=== PATIENT | female | born 1990 | race Caucasian/White ===

== ENCOUNTER 2023-10-01 14:26 | Outpatient (CLI) | payer OTHER, SELFPAY ==
--- NOTE | ~2023-10-01 | US_ITS ---
EXAMINATION: US OB limited DATE: 10/01/2023 15:59 INDICATION: Amniotic fluid index and presentation evaluation during third trimester TECHNIQUE: Real-time ultrasound of the pelvis was performed. The interpreting radiologist was not pre sent for the study. COMPARISON: None. FINDINGS: There is a single living fetus in breech presentation. The placenta is fundal. cardia c activity and movement are noted. heart rate is 143 beats per minute (bpm). The amniotic fluid index is 9.7 cm which is normal (normal range: 7.5 cm to 24.4 cm). IMPRESSION: 1. Single living fetus in breech presentation. 2. Normal amniotic fluid index. Reviewed, dictated and finalized at location [facility]
[2023-10-01 15:20] VITALS: BP 134/77; PULSE 103
[2023-10-01 15:20] LABS: Basophils Percent Auto 0.2 % (0.2-1.2); Eosinophils Absolute Auto 0.1 K/mm3 (0-0.3); Eosinophils Percent Auto 0.7 % (0-4.4); Hematocrit 32.8 % (37.0-47.0); Hemoglobin 10.7 g/dL (12.0-15.0); Immature Granulocyte Absolute 0.06 K/mm3 (0.00-0.031); Immature Granulocyte Percent A 0.6 % (0-0.5); Lymphocytes Percent Auto 21.8 % (18.3-44.2); Mean Corpuscular HGB Conc 32.6 g/dl (32-36); Mean Corpuscular Hemoglobin 29.2 pg (26-34); Mean Corpuscular Volume 89.6 fl (80-100); Mean Platelet Volume 10.7 fl (7.4-10.4); Monocytes Absolute Auto 0.6 K/mm3 (0.1-0.6); Monocytes Percent Auto 6.4 % (2.6-8.5); Neutrophils Absolute Auto 6.8 K/mm3 (1.3-6.7); Neutrophils Percent Auto 70.3 % (45.5-73.1); Platelet Count Result 279 k/mm3 (150-375); Red Blood Count 3.66 M/mm3 (4.2-5.4); Red Cell Distribution Width 13.2 % (11.5-14.5); White Blood Count 9.7 K/mm3 (4.5-10.0)
[2023-10-01 15:21] VITALS: BP 134/77; PULSE 92
[2023-10-01 15:30] VITALS: BP 141/75; PULSE 92
[2023-10-01 15:31] LABS: Alanine Aminotransferase 12 U/L (6-35); Albumin Level 3.3 g/dL (3.5-5.1); Alkaline Phosphatase 131 U/L (38-126); Anion Gap 6 mmol/L (8-16); Aspartate Amino Transferase 20 U/L (14-36); Bilirubin,Total 0.2 mg/dL (0.2-1.3); Blood Urea Nitrogen 7 mg/dL (7-17); Carbon Dioxide 21 mmol/L (22-30); Chloride 107 mmol/L (98-107); Estimated Glomerular Filt Rate > 60; Glucose 104 mg/dL (65-110); Sodium 134 mmol/L (137-145); Uric Acid 5.3 mg/dL (2.5-7.5)
[2023-10-01 15:33] LABS: Creatinine Urine 36.8 mg/dL; Total Protein Urine Random 13 mg/dL; Ur Ttl Prot Creatinine Ratio 0.35 mg/mg (0-0.20)
[2023-10-01 15:40] VITALS: BP 141/75; PULSE 86
--- NOTE | 2023-10-01 16:28 | PM.OBTRLD ---
OB - Triage/Final Diagnosis Visit Information Date of evaluation: 10/01/23 Reason for evaluation: other ( induced hypertension) Comments/Additional reasons for admission: I have assessed the risk for this patient, Flora Ricci, and determined that she would benefit from observation care. Evaluation Laboratory results: Laboratory Tests 10/01/23 15:12 WBC 9.7 RBC 3.66 L Hgb 10.7 L Hct 32.8 L MCV 89.6 MCH 29.2 MCHC 32.6 RDW 13.2 Plt Count 279 MPV 10.7 H Immature Gran % (Auto) 0.6 H Neut % (Auto) 70.3 Lymph % (Auto) 21.8 [place] % (Auto) 6.4 Eos % (Auto) 0.7 Baso % (Auto) 0.2 Lymph # (Auto) 2.10 [place] # (Auto) 0.6 Eos # (Auto) 0.1 Baso # (Auto) 0.0 Abs Immat Gran (auto) 0.06 H Absolute Neuts (auto) 6.8 H Absolute Nucleated RBC 0.0 Nucleated RBC % 0.0 Sodium 134 L Potassium 4.0 Chloride 107 Carbon Dioxide 21 L Anion Gap 6 L BUN 7 Creatinine 0.70 Estim Creat Clear Calc Not Reportable Estimated GFR > 60 Glucose 104 Uric Acid 5.3 Calcium 9.0 Total Bilirubin 0.2 AST 20 ALT 12 Alkaline Phosphatase 131 H Total Protein 6.0 L Albumin 3.3 L U Random Total Protein 13 Urine Creatinine 36.8 Protein/Creat Ratio 2 0.35 H Vital signs: Vital Signs - 24 hr 10/01/23 15:21 10/01/23 15:30 Pulse Rate 92 92 Blood Pressure 134/77 141/75 H
--- NOTE | 2023-10-01 16:30 | PC.NURSE ---
Dr. Linda Dwyer at department reviewed strip and lab result. report given regarding ultrasound . discussed with pt plan of care and c section . pt agreed with plan of care. c section was scheduled tomorrow at 1200
[2023-10-01] MEDS: BETAMETHASONE SOD PHOS/ACETATE 30 MG/5 ML VIAL 12 MG IM (16:38)
== END 2023-10-01 16:40 | disposition home or self-care (01) ==
LOC: ANHOBOP 14:42 → ANHLDR 14:44
PROVIDERS: Visit Provider Obstetrics & Gynecology
DX: O13.9 Gestational [pregnancy-induced] hypertension without significant proteinuria, unspecified trimester (principal); Z3A.00 Weeks of gestation of pregnancy not specified
CPT/HCPCS: 36415; 59025; 76815; 80053; 82570; 84156; 84550; 85025; 96372; 99199; J0702

== ENCOUNTER 2023-10-02 09:49 | Inpatient (IN) | payer OTHER, SELFPAY ==
--- NOTE | 2023-10-01 16:31 | P.HP_ITS ---
H&P: HPI History of Present Illness Date/Time: 10/01/23 16:31 Chief Complaint: -induced hypertension at term Narrative: 33-year-old 1 para 0 whose EDC is 10/21/2023, confirmed by 9 week ultrasound who presents at 37 and 2 7th weeks gestation for section. She has elevated blood pressures and rising creatinine with the protein creatinine ratio that is elevated. Baby is breech and she declined an attempt at external version. Risks and benefits of been reviewed. The had been complicated by an abnormal 1hour diabetic test but she passed her 3hour test. [facility] Family History Family History Grandparent Congestive heart failure (CHF) Diabetes mellitus Mother Cervical cancer Diabetes mellitus Social History Social History Substance use: never Spiritual care concerns: No Meds Home Medications and Allergies Home Medications Medication Instructions Recorded Confirmed Type prenat.vits,kalpana,rex-dzun-ophpj 1 tablet 09/20/23 History Allergies Allergy/AdvReac Type Severity Reaction Status Date / Time adhesive tape Allergy Redness of Verified 09/20/23 12:35 Skin Latex, Natural Rubber Allergy Rash Verified 09/20/23 12:35 Exam Const: General: cooperative, healthy appearing and comfortable Orientation/consciousness: oriented to person, oriented to place and oriented to time Resp: Effort & Inspection: normal respiratory effort Cardio: Rate: regular rate Rhythm: regular rhythm Heart sounds: S1 normal heart sound present and S2 normal heart sound present GI: Inspection: normal to inspection ( Gravid soft uterus) Assessment and Plan Assessment and plan (1) Term : Code(s): Z34.90 - Encounter for supervision of normal , unspecified, unspecified trimester Status: Acute (2) induced hypertension: Code(s): O13.9 - Gestational [-induced] hypertension without significant proteinuria, unspecified trimester Status: Acute (3) malpresentation: Code(s): O32.9XX0 - Maternal care for malpresentation of fetus, unspecified, not applicable or unspecified Status: Acute Plan primary low-transverse section. Patient has received 1 dose of steroid secondary to 37 weeks
[2023-10-02] VITALS (60 sets, daily range): BP systolic 112–159; BP diastolic 53–117; PULSE 68–136; RESP 16–18; TEMP 36.4–36.6; O2SAT 95–100; BMI 34.8
--- NOTE | 2023-10-02 07:42 | WPDHPUPDATE1 ---
History and Physical Update Update Date/Time: 10/02/23 07:42 History and Physical has been reviewed, including an updated exam of the patient. There are NO changes in the patient's condition. Risks, benefits, and alternatives have been discussed and questions answered. Patient agrees to proceed with procedure.
--- NOTE | 2023-10-02 10:16 | LDADM ---
This patient, Flora Ricci, was admitted to Labor/Delivery/Recovery 120 on 10/02/23 at 09:49. Plans for primary section. Patient/family oriented to hospital policies and general routines including ID bracelet, bed and alarms, visiting hours, pain management, procedures, bathroom and other care routines, personal items, smoking policy, room service/diet and guest tray routines, infant security routines, and visiting hours. Patient/Family are encouraged to report perceived risks to care and to ask questions if they do not understand what they are told or what they should do. See OBIX for further documentation.
[2023-10-02] MEDS: ACETAMINOPHEN 500 MG TABLET 1000 MG PO (10:34)
[2023-10-02] MEDS: LACTATED RINGERS 1,000 ML 125 ML IV CONT (10:36)
[2023-10-02] MEDS: ONDANSETRON INJ 4 MG/2 ML VIAL IV PUSH (11:33)
[2023-10-02] MEDS: FAMOTIDINE 20 MG/2 ML VIAL IV PUSH (11:33)
[2023-10-02] MEDS: ceFAZolin 2 GM/D5W 50 ML 2 GM/50 ML BAG IVPB (11:56)
--- NOTE | 2023-10-02 12:39 | WPDANESEPPF ---
Anes - Initial Pre Proc Eval Procedure: Operation Date: 10/02/23 12:00 Proposed Procedures p Section - Justin Dwyer MD Date/Time: 10/02/23 12:39 Surgeon: Justin Dwyer MD Pre Op Diagnosis: c/s Patient Data Age: 33 Gender: F Height: 1.68 m Weight: 98 kg Last Vital Signs Pulse 98 10/02/23 10:11 BP 153/84 H 10/02/23 10:11 Pulse Ox 97 10/02/23 10:10 O2 Del Method Room Air 10/02/23 10:13 Allergies Allergy/AdvReac Type Severity Reaction Status Date / Time adhesive tape Allergy Redness of Verified 09/20/23 12:35 Skin Latex, Natural Rubber Allergy Rash Verified 09/20/23 12:35 Home Medications Medication Instructions Recorded Confirmed Type One A Day Women's DHA 1 tab-cap PO DAILY 10/02/23 10/02/23 History famotidine 20 mg tablet (Pepcid) 20 mg PO DAILY 10/02/23 10/02/23 History hydrocodone 5 mg-acetaminophen 325 1 tablet PO Q4H PRN pain #30 tabs 10/02/23 Rx mg tablet Laboratory Tests 10/02/23 10:27 RPR Pending Blood Type O Positive Antibody Screen Negative Patient hx anesthesia problems: none Family hx anesthesia problems: none Results Review: All pre-operative results and documents have been reviewed as part of the pre-operative evaluation. [facility] Surgical History Surgical History (Updated 10/02/23 @ 12:39 by Justin Woods MD) H/O wisdom tooth extraction Family History Family History Grandparent Congestive heart failure (CHF) Diabetes mellitus Mother Cervical cancer Diabetes mellitus Social History Social History Smoking status: Former smoker Second hand tobacco smoke exposure: No Substance use: never Do You Feel Safe in your Home?: Yes Lack of Transportation: No Lack of Food: Never True Current Housing: I Have Housing Concerned About Future Housing: No Difficulty Paying Gas/Electric Bills: No Difficulty Paying for Meds: No Currently Unemployed: No Education: Associate Degree Difficulty w/ Childcare or Family Care: No Spiritual care concerns: No Anes - Eval Final PreProcedure Day of Procedure 10/02/23 12:39 Patient weight: obese Heart: regular rate and rhythm Lungs: clear to auscultation Airway: Mallampati scale class 1 Neurological: alert and oriented Last oral intake: >/= 8 hours ASA classification: II Emergent: no Anesthetic plan: proceed Anesthesia type and monitoring: regional spinal and standard monitoring Results Review: All pre-operative results and documents have been reviewed as part of the pre-operative evaluation. Informed Consent: The patient's anesthetic plan and its attendant risks and benefits were discussed with the patient/family/POA. Questions were solicited and answers provided to the satisfaction of the patient/family/POA.
--- NOTE | 2023-10-02 12:47 | W.PM.OBCSD ---
OB - Delivery Note Procedure Delivery date: 10/02/23 Pre-op diagnosis: Breech Presentation and Other (-induced hypertension) Post-op Diagnosis: Same Induction method: None Delivery monitor: External FHT Procedure Performed: Primary Surgeon: Justin Dwyer MD Anesthesia type: Spinal Description of Procedure/Findings: patient was admitted for primary section secondary to breech presentation 37 week and -induced hypertension. After local ultrasound showed continued breech presentation patient was wheeled back placed in the supine position prepped and draped in the normal sterile fashion. The abdomen was entered through Pfannenstiel fashion incision progressive layers of fascia. Fascia incised midline care number fashion. Underlying muscles sharply dissected. Parietal peritoneum 0 by Tierra clamps and by sharp dissection and carried inferiorly and to the dome of the bladder. Bladder blade for placed. Bladder flap formed. Bladder blade returned. Low-transverse incision made the breech delivered to the maternal right. Arms were swept medially and the head delivered in flexed position. passed off the table with an excellent cry. Placenta delivered intact manually. Uterus delivered on the abdomen wrapped in a moist towel. After assuring no membranes or debris remained in the uterus, the uterus was closed with continuous running locking 0 Vicryl from lateral edge to lateral edge. Followed by 2nd running 0 Vicryl from lateral edge to lateral edge. Hemostasis was assured. Ovaries and tubes appeared within normal limits. Uterus returned the abdomen. Hysterotomy incision inspected 1 last time noted be hemostatic. Debris from the gutters and cul-de-sac were removed. Laps removed and accounted for. The hysterotomy incision SPECT 1 last time noted be hemostatic. The fascia closed with continuous running 0 Vicryl from lateral edge to lateral edge. Irrigation subcutaneous layer the skin closed with 4 Monocryl glue. QBL was 325. All sponge, needle, instrument counts were correct. There were no immediate complications noted Estimated Blood Loss: 325 Drains: No Packing: No Pathology: None sent Complications: No immediate complications Condition: Stable Disposition: Floor Baby Date of : 10/02/23 Time of : 12:30 Weeks of gestation at delivery: 37 Infant gender: Female Weight (pounds): 6 Weight (ounces): 12 presentation: vance breech position: Other ( right breech anterior) Placenta delivery description: Manual Removal Cord Vessel Description: 3 Vessels and Nuchal Cord score one minute: 9 score five minutes: 9
--- NOTE | 2023-10-02 12:52 | PM.DS ---
DS: Admitting Diagnosis Discharge Date 10/05/2023 Admitting Diagnosis 37 week / breech presentation/-induced hypertension DS: Discharge Diagnosis Discharge Diagnosis (1) Term : Code(s): Z34.90 - Encounter for supervision of normal , unspecified, unspecified trimester Status: Acute (2) induced hypertension: Code(s): O13.9 - Gestational [-induced] hypertension without significant proteinuria, unspecified trimester Status: Acute (3) malpresentation: Code(s): O32.9XX0 - Maternal care for malpresentation of fetus, unspecified, not applicable or unspecified Status: Acute DS: Summary Hospital Course Reason for hospitalization: patient was admitted on 10/02/2023 for primary section secondary to breech -induced hypertension at term Hospital Course: patient underwent an unremarkable 10/02/2023. Her hospital course unremarkable. She remained afebrile. She was up, voiding without difficulty, eating regular diet, ambulating, generally thought complaints. Time Spent with Patient Time attestation: Total time spent providing and/or coordinating discharge services: Exam Const: General: cooperative, healthy appearing and comfortable Nutritional Appearance: average body habitus Orientation/consciousness: oriented to person, oriented to place and oriented to time HENMT: Head: normal to inspection Resp: Effort & Inspection: normal respiratory effort Cardio: Rate: regular rate Rhythm: regular rhythm Heart sounds: S1 normal heart sound present and S2 normal heart sound present GI: Inspection: normal to inspection ( Fundus firm below the umbilicus) and incision ( wound is clean dry and intact) DS: Data Data Completed and Pending Labs on day of discharge: Labs from last 24 hours 10/02/23 10:27 RPR Pending Blood Type O Positive Antibody Screen Negative Discharge Plan Discharge Attending physician on discharge: Justin Banuelos Discharging Clinician: Justin Banuelos Patient Disposition: Home, Self-Care Activity: may shower, no straining, may drive after 2 weeks and pelvic rest Diet: heart healthy Wound Care Instructions: follow printed instructions Patient Instructions: Antibiotic Form Stand Alone Forms: General Discharge Information Follow-up/Referrals: Justin Banuelos MD [Physician] - Discharge Medications: New hydrocodone-acetaminophen 5-325 mg tablet 1 tablet PO Q4H PRN (Reason: pain) Qty: 30 0RF No Action One A Day Women's DHA 1 tab-cap PO DAILY famotidine [Pepcid] 20 mg Tablet 20 mg PO DAILY Date of admission: 10/02/23 09:49 Primary Care Provider: PHYSICIAN,[employer] Admitting Provider: Justin Banuelos Attending physician on admission: Justin Banuelos Condition: Stable
[2023-10-02 13:01] LABS: Rapid Plasma Reagin Non-Reactive (NonReactive)
[2023-10-02] MEDS: OXYTOCIN 30 UNITS/NS 500 ML 30 UNITS/500 ML BAG 125 UNITS IV CONT (14:06)
--- NOTE | 2023-10-02 15:10 | OBPPTRN ---
Patient transferred to post room #291 via stretcher. Support person present. Oriented to unit, room, information board, rooming in, admission packet and security measures. Patient verbalizes understanding.
--- NOTE | 2023-10-02 15:10 | OBPPTRN ---
Patient transferred to post room # via ( ). Support person present. Oriented to unit, room, information board, rooming in, admission packet and security measures. Patient verbalizes understanding.
[2023-10-02] MEDS: ACETAMINOPHEN 325 MG TABLET 650 MG PO (18:04)
[2023-10-02] MEDS: DOCUSATE SODIUM 100 MG CAPSULE PO (18:06)
[2023-10-02] MEDS: SIMETHICONE 80 MG TAB.CHEW PO (18:06)
[2023-10-02] MEDS: KETOROLAC 15 MG/ML VIAL (*BKC) IV PUSH (18:23)
[2023-10-02] MEDS: DEXTROSE 5%/0.45% SOD CHL 1,000 ML 125 ML IV CONT (19:13)
[2023-10-03 00:15] VITALS: BP 123/67; PULSE 93; RESP 16; TEMP 36.5; O2SAT 100
[2023-10-03] MEDS: KETOROLAC 15 MG/ML VIAL (*BKC) IV PUSH ×3 (00:30→15:00)
[2023-10-03] MEDS: ACETAMINOPHEN 325 MG TABLET 650 MG PO ×4 (00:30→21:40)
[2023-10-03 04:15] VITALS: BP 135/82; PULSE 98; RESP 16; TEMP 36.6; O2SAT 100
[2023-10-03 05:00] LABS: Basophils Percent Auto 0.2 % (0.2-1.2); Eosinophils Percent Auto 0.1 % (0-4.4); Hematocrit 29.3 % (37.0-47.0); Hemoglobin 9.7 g/dL (12.0-15.0); Immature Granulocyte Absolute 0.08 K/mm3 (0.00-0.031); Immature Granulocyte Percent A 0.5 % (0-0.5); Lymphocytes Absolute Auto 2.59 K/mm3 (0.9-3.2); Lymphocytes Percent Auto 17.5 % (18.3-44.2); Mean Corpuscular HGB Conc 33.1 g/dl (32-36); Mean Corpuscular Hemoglobin 29.8 pg (26-34); Mean Corpuscular Volume 90.2 fl (80-100); Monocytes Absolute Auto 1.2 K/mm3 (0.1-0.6); Monocytes Percent Auto 7.9 % (2.6-8.5); Neutrophils Percent Auto 73.8 % (45.5-73.1); Platelet Count Result 280 k/mm3 (150-375); Red Blood Count 3.25 M/mm3 (4.2-5.4); Red Cell Distribution Width 13.2 % (11.5-14.5); White Blood Count 14.8 K/mm3 (4.5-10.0)
--- NOTE | 2023-10-03 07:40 | P.PNOB_ITS ---
OB - PN: Subj Subjective Date/time seen: 10/03/23 07:40 Patient comments: no complaints and pain well controlled baby status: doing well OB - PN: Obj Data Labs 10/03/23 04:07 Labs: Laboratory Results - last 24 hr 10/02/23 10/03/23 10:27 04:07 WBC 14.8 H RBC 3.25 L Hgb 9.7 L Hct 29.3 L MCV 90.2 MCH 29.8 MCHC 33.1 RDW 13.2 Plt Count 280 MPV 11.0 H Immature Gran % (Auto) 0.5 Neut % (Auto) 73.8 H Lymph % (Auto) 17.5 L [place] % (Auto) 7.9 Eos % (Auto) 0.1 Baso % (Auto) 0.2 Lymph # (Auto) 2.59 [place] # (Auto) 1.2 H Eos # (Auto) 0.0 Baso # (Auto) 0.0 Abs Immat Gran (auto) 0.08 H Absolute Neuts (auto) 11.0 H Absolute Nucleated RBC 0.0 Nucleated RBC % 0.0 RPR Non-reactive Blood Type O Positive Antibody Screen Negative OB - PN A/P Plan day: 1 Plan: routine care Time Spent With Patient Time: Total time spent is greater than 50% in coordination of care (as documented) at patient's floor/unit and/or counseling patient: Time with patient: less than 15 minutes Exam Const: General: cooperative, healthy appearing and comfortable Nutritional Appearance: average body habitus Orientation/consciousness: oriented to p erson, oriented to place and oriented to time Resp: Effort & Inspection: normal respiratory effort Cardio: Rate: regular rate Rhythm: regular rhythm Heart sounds: S1 normal heart sound present and S2 normal heart sound present GI: Inspection: normal to inspection and incision (cdi)
[2023-10-03 07:55] VITALS: BP 135/78; PULSE 97; RESP 16; TEMP 37.2; O2SAT 100
[2023-10-03] MEDS: SIMETHICONE 80 MG TAB.CHEW PO ×3 (08:30→18:40)
[2023-10-03] MEDS: MULTIVIT/MIN/PREN/FOL AC/IRON TABLET 1 TAB PO (08:35)
[2023-10-03] MEDS: POLYSACCHARIDE IRON COMPLEX 150 MG CAPSULE PO ×2 (08:36→18:40)
[2023-10-03] MEDS: DOCUSATE SODIUM 100 MG CAPSULE PO ×2 (08:36→18:40)
[2023-10-03 12:23] VITALS: BP 128/70; PULSE 101; RESP 16; TEMP 36.9; O2SAT 99
--- NOTE | 2023-10-03 13:29 | WPDANLDPN2 ---
Anes-Prog Note L&D Date/Time: 10/03/23 13:29 Comfortable throughout: section Neuraxial method: spinal Epidural/Spinal procedure site: clean & non-tender Neuro status: Neuro function grossly intact. Cardiovascular status: normal Respiratory status: normal Airway patency: baseline Mental status: baseline Post-Op hydration status: normal Vital Signs: Last Vital Signs Temp 98.4 F 10/03/23 12:23 Pulse 101 H 10/03/23 12:23 Resp 16 10/03/23 12:23 BP 128/70 10/03/23 12:23 Pulse Ox 99 10/03/23 12:23 O2 Del Method Room Air 10/03/23 04:15 Pain score (VAS): 3 I/O: Intake & Output 10/02/23 10/03/23 10/03/23 23:59 07:59 15:59 Intake Total 620 600 500 Output Total 550 800 Balance 70 -200 500 Post-procedural complaints: none Patient feedback: Patient satisfied with anesthetic care.
--- NOTE | 2023-10-03 13:30 | WPDANLDNPN2 ---
Anes-Prog Note L&D-Neuraxial Date/Time: 10/03/23 13:30 Neuraxial medications: intrathecal PF morphine Opiod-related complaints: none Patient feedback: Patient satisfied with post-operative pain management.
--- NOTE | 2023-10-03 15:52 | PC.NURSE ---
[id number] Introductions were made, then consulted with patient to assess needs related to . Mother led the conversation with her?plans to feed?her infant, the?experience so far and Primary RN had just finished working with the dyad with with a nipple shield. Encouraged understanding of the benefits of skin to skin (mother is demonstrating diapered and placed upright on her chest). Mother's breakfast just arrived and she was encouraged to eat, then call for assistance. Mother voiced understanding and RN KARLEE's name was written on the communication board. [id number] Mother called for assistance with waking to breastfeed. Demonstrated stimulating with massage touch, changing positions to encourage wakefulness, how to watch for early feeding cues, responsive feeding, feeding on demand (aiming for 8-12 times in 24 hours, about every 2-3 hours), milk production, building/maintaining a milk supply, duration of feeding, signs of adequate intake/output and how to record on the feeding sheet. Mother works well with her infant with encouragement and education. The late infant would wake up briefly, then go back to sleep. Blood sugar resulted in 58mg/dl. Educated and practiced hand expression with mother and a puddle of colostrum on a spoon was spoon fed to allowing lapping and the rest was finger fed to the infant. remained sleepy and reluctant, therefore mother was encouraged to pump for stimulation and human milk. Breast pump provided prior to meeting LC due to ineffective . Instructions given on cleaning, care, usage, that there should be no pain, pumping schedule for milk production, collection, and storage of human milk. Patient was assessed for correct placement, flange size, to pump for comfort and nipple stretching/stimulation for adequate milk production every 3 hours (8 times in 24 hours) 1-2 times at night. Parents are encouraged to record the pumping schedule on the feeding sheet.?Reviewed comfort measures of healing with a warm, wet washcloth to rinse breast, then leave open to air-dry, good handwashing when or touching the breast/nipples to prevent infection. The 0.5ml of additional human milk that was pumped out was slowly syringe fed to the in the buccal allowing for time to swallow and breath. Mother voiced understanding of skin to skin, stimulating with massage touch, responsive feedings, hand expressed colostrum, talking to infant to encourage if it has been 2 -2.5 hours since the start of the last , to call if infant does not latch, or if there is discomfort with . Resources used for education were facilitated with the visual educational handouts, tool, mom and baby guide. Inpatient/outpatient resources provided with feeding sheet, name written on the communication board, and the mom/baby guide. Mother voiced understanding of information, demonstrated learning and will call if there is a request for assistance. Reported to the Primary RN.
[2023-10-03 17:45] VITALS: BP 139/75; PULSE 94; RESP 16; TEMP 37.6; O2SAT 99
[2023-10-03 19:30] VITALS: BP 140/74; PULSE 101; RESP 18; TEMP 36.8; O2SAT 98
[2023-10-03] MEDS: IBUPROFEN 600 MG TABLET PO (21:40)
[2023-10-04] MEDS: ACETAMINOPHEN 325 MG TABLET 650 MG PO ×3 (03:40→16:11)
[2023-10-04] MEDS: IBUPROFEN 600 MG TABLET PO ×3 (03:40→16:11)
--- NOTE | 2023-10-04 06:48 | PM.OBPNVD ---
OB - PN: Subj Subjective Date/time seen: 10/04/23 06:48 Patient comments: no complaints and pain well controlled baby status: doing well OB - PN: Obj Data Labs 10/03/23 04:07 OB - PN A/P Plan day: 2 Plan: routine care Time Spent With Patient Time: Total time spent is greater than 50% in coordination of care (as documented) at patient's floor/unit and/or counseling patient: Time with patient: less than 15 minutes Exam Const: General: cooperative, healthy appearing and comfortable Nutritional Appearance: average body habitus Orientation/consciousness: oriented to person, oriented to place and oriented to time Resp: Effort & Inspection: normal respiratory effort Cardio: Rate: regular rate Rhythm: regular rhythm Heart sounds: S1 normal heart sound present and S2 normal heart sound present GI: Inspection: normal to inspection and incision (cdi)
[2023-10-04 08:00] VITALS: PULSE 93; RESP 16; O2SAT 100
[2023-10-04 08:05] VITALS: BP 146/85; PULSE 93; RESP 16; TEMP 37.4; O2SAT 100
[2023-10-04] MEDS: DOCUSATE SODIUM 100 MG CAPSULE PO ×2 (08:56→16:11)
[2023-10-04] MEDS: POLYSACCHARIDE IRON COMPLEX 150 MG CAPSULE PO ×2 (08:56→16:11)
[2023-10-04] MEDS: SIMETHICONE 80 MG TAB.CHEW PO ×3 (08:56→16:11)
[2023-10-04] MEDS: MULTIVIT/MIN/PREN/FOL AC/IRON TABLET 1 TAB PO (08:56)
[2023-10-04 12:07] VITALS: BP 133/75; PULSE 97; RESP 16; TEMP 37; O2SAT 97
--- NOTE | 2023-10-04 15:35 | PC.NURSE ---
[id number] Purposefully rounded to assess for needs. Mother is attempting to take a nap and shares that infant is still not latching. Mother is on a plan of attempting to latch effectively, pumping, and supplementing with formula. RN LC offered assistance with needs today. Name remains on the communication board. Parents voiced understanding.
[2023-10-04 23:15] VITALS: BP 149/91; PULSE 99; RESP 18; TEMP 36.9; O2SAT 100
[2023-10-05] MEDS: ACETAMINOPHEN 325 MG TABLET 650 MG PO (04:30)
[2023-10-05] MEDS: IBUPROFEN 600 MG TABLET PO (04:30)
--- NOTE | 2023-10-05 07:57 | PM.OBPNVD ---
OB - PN: Subj Subjective Date/time seen: 10/05/23 07:57 Patient comments: no complaints and pain well controlled baby status: doing well and nursing well OB - PN: Obj Data Labs 10/03/23 04:07 OB - PN A/P Plan day: 3 Plan: routine care, discharge home and follow up 6 weeks Time Spent With Patient Time: Total time spent is greater than 50% in coordination of care (as documented) at patient's floor/unit and/or counseling patient: Time with patient: less than 15 minutes Exam Const: General: cooperative, healthy appearing and comfortable Nutritional Appearance: average body habitus Orientation/consciousness: oriented to person, oriented to place and oriented to time Resp: Effort & Inspection: normal respiratory effort GI: Inspection: normal to inspection and incision (Wound is clean dry and intact)
[2023-10-05 08:30] VITALS: BP 155/91; PULSE 85; RESP 16; TEMP 36.4; O2SAT 100
[2023-10-05] MEDS: MULTIVIT/MIN/PREN/FOL AC/IRON TABLET 1 TAB PO (08:56)
[2023-10-05] MEDS: POLYSACCHARIDE IRON COMPLEX 150 MG CAPSULE PO (08:56)
[2023-10-05] MEDS: LANOLIN (LANSINOH) 7.5 GM CREAM 1 APPLIC TOPICAL (08:58)
[2023-10-07 10:37] VITALS: BP 124/85; PULSE 98; RESP 18; TEMP 36.9; O2SAT 98
== END 2023-10-05 12:40 | disposition home or self-care (01) | DRG 788 ==
LOC: ANHLDR 09:54 → ANHOB2 15:42
PROVIDERS: Admitting Provider Obstetrics & Gynecology; Visit Provider Obstetrics & Gynecology
PROC: 10D00Z1 Extraction of Products of Conception, Low, Open Approach (ICD-10-PCS; CPT 59514; principal; 2023-10-02 12:00)
DX: O13.4 Gestational [pregnancy-induced] hypertension without significant proteinuria, complicating childbirth (principal); Z37.0 Single live birth; Z3A.37 37 weeks gestation of pregnancy; O69.81X0 Labor and delivery complicated by cord around neck, without compression, not applicable or unspecified; O32.1XX0 Maternal care for breech presentation, not applicable or unspecified
CPT/HCPCS: 36415; 85025; 86592; 86850; 86900; 86901; A9270; J0690; J1100; J1885; J2274; J2371; J2405; J2590; J7120